=== PATIENT | female | born 1970 | race American Indian/Alaskan Native ===

== ENCOUNTER 2017-04-07 20:53 | Emergency (ER) | payer SELFPAY ==
[2017-04-08 03:29] VITALS: BP 167/95
== END 2017-04-08 11:00 | disposition left against medical advice (07) ==
LOC: ED 20:53
DX: J11.1 Influenza due to unidentified influenza virus with other respiratory manifestations (principal); Z53.21 Procedure and treatment not carried out due to patient leaving prior to being seen by health care provider